=== PATIENT | female | born 1950 | race Hispanic/Latino ===

== ENCOUNTER 2019-02-15 14:20 | Emergency (ER) | payer SELFPAY ==
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
[2019-02-15] MEDS ORDERED: LISINOPRIL 20 MG TAB ONE (17:27)
== END 2019-02-15 17:31 | disposition home or self-care (01) ==
LOC: ER 14:20
DX: S39.012A Strain of muscle, fascia and tendon of lower back, initial encounter (principal); V43.02XA Car driver injured in collision with other type car in nontraffic accident, initial encounter; Y92.524 Gas station as the place of occurrence of the external cause; I10 Essential (primary) hypertension
CPT/HCPCS: 72100; 99284

== ENCOUNTER 2021-03-23 21:48 | Emergency (ER) | payer SELFPAY ==
--- OUTSIDE RECORDS SUMMARY | 2021-03-23 21:51 | XMS REPORT | Continuity of Care Document ---
:1950 Author Organization [facility] t Address [address] [place] [address] [place] [id number] Care Team Providers Name Role Phone Unavailable Unavailable Unavailable Payers Payer Name Policy Type Policy Number Effective Date Expiration Date S ource Problems This patient has no known problems. Allergies, Adverse Reactions, Alerts This patient has no known allergies or adverse reactions. Medications This patient has no known medications. Procedures This patient has no known procedures. Results This patient has no known results.
[2021-03-23 22:36] LABS: Absolute Lymphocytes (CBC) 1.4 K/uL (0.7-4.9); Basophils % 0.6 % (0-1.3); Hematocrit 32.7 % (36.0-45.0); Lymphocytes % 22.6 % (15.3-44.8); MPV 8.2 fL (7.6-11.3); RBC Red Blood Cell Count 3.87 M/uL (3.86-4.86)
[2021-03-23 22:47] LABS: Potassium 3.2 mmol/L (3.5-5.1)
[2021-03-23] MEDS ORDERED: KETOROLAC 30 MG/ML INJ ONE (23:16)
[2021-03-23] MEDS ORDERED: lisinopriL 20 MG TAB ONE (23:26)
[2021-03-23] MEDS ORDERED: HYDRALAZINE HCL 20 MG/ML VIAL ONE (23:36)
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
[2021-03-24 01:14] VITALS: TEMP 97.6
[2021-03-24 01:24] VITALS: BP 124/79; O2SAT 99
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
== END 2021-03-24 00:19 | disposition home or self-care (01) ==
LOC: ER 21:48
DX: S20.212A Contusion of left front wall of thorax, initial encounter (principal); I16.0 Hypertensive urgency; I10 Essential (primary) hypertension; V49.49XA Driver injured in collision with other motor vehicles in traffic accident, initial encounter
CPT/HCPCS: 36415; 70450; 71045; 71250; 72125; 80048; 85025; 86850; 86900; 86901; 96374; 96375; 99285; G0390; J0360

== ENCOUNTER 2022-05-18 19:30 | Emergency (ER) | payer OTHER ==
--- OUTSIDE RECORDS SUMMARY | 2022-05-18 19:34 | XMS REPORT | Continuity of Care Document ---
:1950 Author Organization [facility] t Address [address] [place] [address] Dr. Carrington [address] [place] [id number] Care Team Providers Name Role Phone Nikki Christopher Primary Care Physician [phone] Esa Lemos Attending Clinician Unavailable Esa Lemos Admitting Clinician Unavailable Payers Payer Name Policy Type Policy Number Effective Date Expiration Date S ource Problems This patient has no known problems. Allergies, Adverse Reactions, Alerts This patient has no known allergies or adverse reactions. Medications Ordered Filled Start Stop Current Ordering Indication Dosage Frequency Signature Comments Components Source Medication Medication Date Date Medication? Clinician (SIG) Name Name TAKE 1 2021-0 No 25 TABLET 8-11 TWICE 00:00: DAILY. 00 TAKE 1 2021-0 No 25 TABLET 8-08 TWICE 00:00: DAILY. 00 lisinopril 2-0 No 1mg 40 mg 6-03 tablet 00:00: 00 hydralazine 2-0 No 1mg 25 mg 6-03 tablet 00:00: 00 lisinopril 2022-0 No 1mg 40 mg 4-25 tablet 00:00: 00 hydralazine 2022-0 No 1mg 25 mg 4-25 tablet 00:00: 00 lisinopril 2-0 No 1mg 40 mg 4-04 tablet 00:00: 00 lisinopril 2-0 No 1mg 40 mg 4-04 tablet 00:00: 00 hydralazine 2022-0 No 1mg 25 mg 3-25 tablet 00:00: 00 Dose 2022-0 No Unknown 3-25 00:00: 00 Dose 2022-0 No Unknown 3-25 00:00: 00 Dose 2022-0 No Unknown 3-25 00:00: 00 Dose 2022-0 No Unknown 3-25 00:00: 00 Dose 2022-0 No Unknown 3-25 00:00: 00 Dose 2022-0 No Unknown 3-25 00:00: 00 Dose 2022-0 No Unknown 3-25 00:00: 00 Dose 2022-0 No Unknown 3-25 00:00: 00 Dose 2022-0 No Unknown 3-25 00:00: 00 Dose 2022-0 No Unknown 3-25 00:00: 00 Dose 2022-0 No Unknown 3-25 00:00: 00 Dose 2022-0 No Unknown 3-25 00:00: 00 Dose 2022-0 No Unknown 3-25 00:00: 00 Dose 2022-0 No Unknown 3-25 00:00: 00 Dose 2022-0 No Unknown 3-25 00:00: 00 Dose 2022-0 No Unknown 3-25 00:00: 00 Dose 2022-0 No Unknown 3-25 00:00: 00 Dose 2022-0 No Unknown 3-25 00:00: 00 Dose 2022-0 No Unknown 3-25 00:00: 00 Dose 2022-0 No Unknown 3-25 00:00: 00 Dose 2022-0 No Unknown 3-25 00:00: 00 Dose 2022-0 No Unknown 3-25 00:00: 00 Dose 2022-0 No Unknown 3-25 00:00: 00 Dose 2022-0 No Unknown 3-25 00:00: 00 Dose 2022-0 No Unknown 3-25 00:00: 00 Dose 2022-0 No Unknown 3-25 00:00: 00 Dose 2022-0 No Unknown 3-25 00:00: 00 Dose 2022-0 No Unknown 3-25 00:00: 00 Dose 2022-0 No Unknown 3-25 00:00: 00 Dose 2022-0 No Unknown 3-25 00:00: 00 Dose 2022-0 No Unknown 1-06 00:00: 00 Dose 1-1 No Unknown 2-27 00:00: 00 hydroxyzine 2021-1 No 1mg HCl 10 mg 1-17 tablet 00:00: 00 Cymbalta 20 1-1 No 1mg mg 1-17 capsule,del 00:00: ayed 00 release amlodipine 1-1 No 1mg 10 mg 1-12 tablet 00:00: 00 Zoloft 50 1-1 No 1mg mg tablet 1-10 00:00: 00 hydralazine 1-1 No 1mg 25 mg 0-28 tablet 00:00: 00 amlodipine 1-1 No 1mg 10 mg 0-26 tablet 00:00: 00 lisinopril 1-1 No 1mg 40 mg 0-04 tablet 00:00: 00 amlodipine 1-0 No 1mg 10 mg 9-29 tablet 00:00: 00 lisinopril 1-0 No 1mg 40 mg 9-07 tablet 00:00: 00 hydralazine 1-0 No 1mg 25 mg 9-05 tablet 00:00: 00 amlodipine 1-0 No 1mg 10 mg 8-27 tablet 00:00: 00 amlodipine 1-0 No 1mg 2.5 mg 8-13 tablet 00:00: 00 lisinopril 1-0 No 1mg 40 mg 8-06 tablet 00:00: 00 lisinopril 1-0 No 1mg 20 mg 7-08 tablet 00:00: 00 lisinopril 1-0 No 1mg 20 mg 4-19 tablet 00:00: 00 lisinopril 2019-1 No 1mg 20 mg 2-11 tablet 00:00: 00 lisinopril 2019-0 No 1mg 20 mg 9-17 tablet 00:00: 00 lisinopril 2020-0 No 1mg 20 mg 9-17 tablet 00:00: 00 lisinopril 2020-0 No 1mg 20 mg 3-24 tablet 00:00: 00 Vital Signs Vital Name Observation Time Observation Value Comments Source BP Systolic 2021-10-06 17:26:00 142 mm[Hg] BP Diastolic 2021-10-06 17:26:00 89 mm[Hg] Weight Measured 2021-10-06 17:26:00 Height Measured 2021-10-06 17:26:00 Body Temperature 2021-10-06 17:26:00 Heart Rate 2021-10-06 17:26:00 Respiratory Rate 2021-10-06 17:26:00 BP Systolic 2021-09-08 15:14:00 140 mm[Hg] BP Diastolic 2021-09-08 15:14:00 79 mm[Hg] Weight Measured 2021-09-08 15:14:00 107.60 pounds Height Measured 2021-09-08 15:14:00 62.20 inches Body Temperature 2021-09-08 15:14:00 97.70 degrees Heart Rate 2021-09-08 15:14:00 86.00 /min Respiratory Rate 2021-09-08 15:14:00 Height Measured 2021-08-19 15:33:00 62.20 inches Body Temperature 2021-08-19 15:33:00 97.70 degrees Heart Rate 2021-08-19 15:33:00 79.00 /min Respiratory Rate 2021-08-19 15:33:00 BP Systolic 2021-08-19 15:33:00 122 mm[Hg] BP Diastolic 2021-08-19 15:33:00 84 mm[Hg] Weight Measured 2021-08-19 15:33:00 107.60 pounds BP Systolic 2021-08-12 11:13:00 122 mm[Hg] BP Diastolic 2021-08-12 11:13:00 74 mm[Hg] Weight Measured 2021-08-12 11:13:00 107.40 pounds Height Measured 2021-08-12 11:13:00 62.20 inches Body Temperature 2021-08-12 11:13:00 96.80 degrees Heart Rate 2021-08-12 11:13:00 76.00 /min Respiratory Rate 2021-08-12 11:13:00 BP Systolic 2021-06-16 17:35:00 117 mm[Hg] BP Diastolic 2021-06-16 17:35:00 81 mm[Hg] Weight Measured 2021-06-16 17:35:00 114.40 pounds Height Measured 2021-06-16 17:35:00 62.20 inches Body Temperature 2021-06-16 17:35:00 97.20 degrees Heart Rate 2021-06-16 17:35:00 80.00 /min Respiratory Rate 2021-06-16 17:35:00 16.00 /min Weight Measured 2021-03-24 15:54:00 121.60 pounds Height Measured 2021-03-24 15:54:00 62.20 inches Body Temperature 2021-03-24 15:54:00 98.20 degrees Heart Rate 2021-03-24 15:54:00 84.00 /min Respiratory Rate 2021-03-24 15:54:00 16.00 /min BP Systolic 2021-03-24 15:54:00 201 mm[Hg] BP Diastolic 2021-03-24 15:54:00 97 mm[Hg] Procedures This patient has no known procedures. Plan of Care Planned Activity Planned Date Details Comments Source Goal Plan of Care Note [code = 18616-7] Goal Plan of Care Note [code = 81831-5] Goal Plan of Care Note [code = 14505-0] Goal Plan of Care Note [code = 02092-0] Goal Plan of Care Note [code = 63995-9] Goal Plan of Care Note [code = 95289-0] Encounters Start End Encounter Admission Attending Care Care Encounter Source Date/Time Date/Time Type Type Clinicians Facility Department ID 2022-05-04 2022-05-04 Outpatient [id number] 00:00:00 00:00:00 Visit [id number] 2021-12-08 2021-12-08 Outpatient ALVERTO Lemos [facility] [id number] [facility] 12:00:00 12:00:00 , [id number] [facility] Results This patient has no known results.
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
[2022-05-18 21:13] LABS: Hematocrit 36.5 % (36.0-45.0); Lymphocytes % 13.6 % (15.3-44.8); MCV 84.6 fL (80-100); MPV 8.2 fL (7.6-11.3); RBC Red Blood Cell Count 4.31 M/uL (3.86-4.86)
[2022-05-18 21:55] LABS: Potassium 3.8 mmol/L (3.5-5.1); Troponin High Sensitivity 6.7 pg/mL (<58.9)
--- NOTE | 2022-05-18 22:11 | EDPHYS ---
Physician Documentation [facility] Name: Anny Neri Age: 71 yrs Sex: Female : 1950 Arrival Date: 05/18/2022 Time: 19:32 Bed 25 Private MD: ED Physician Federico Varghese HPI: 05/18 20:12 This 71 yrs old Female presents to ER via Ambulatory with complaints of Fall jmm Injury, Head Injury-Adult. 20:12 Details of fall: The patient fell from an upright position. Onset: The symptoms/episode jmm began/occurred acutely, today. Associated injuries: The patient sustained injury to the head. This is a 71-year-old female with a history of hypertension that presents to the emergency department with complaints of dizziness and a fall which occurred while she was at work. Patient states that her physician recently increase the frequency of her hydralazine. States she took an additional dose of hydralazine just prior to work. Patient states while at work she was having difficulty walking and fell, hitting her head. Denies loss of consciousness. Patient was evaluated urgent care. Denies chest pain or palpitations. Historical: - Allergies: 19:42 No Known Allergies; tw5 - Home Meds: 19:42 lisinopril Oral [Active]; hydralazine 25 mg Oral tab 1 tab 4 times per day [Active]; tw5 - PMHx: 19:42 Hypertension; tw5 - Immunization history:: Last tetanus immunization: unknown. - Social history:: Smoking status: Patient denies any tobacco usage or history of. - Immunization history: Last tetanus immunization: unknown. ROS: 20:12 Constitutional: Negative for fever, chills, and weight loss, Cardiovascular: Negative jmm for chest pain, palpitations, and edema, Respiratory: Negative for shortness of breath, cough, wheezing, and pleuritic chest pain. 20:12 Neuro: Positive for dizziness, headache. 20:12 All other systems are negative. Exam: 20:12 Constitutional: This is a well developed, well nourished patient who is awake, alert, jmm and in no acute distress. Head/Face: atraumatic. Eyes: EOMI, no conjunctival erythema appreciated ENT: Moist Mucus Membranes Neck: Trachea midline, Supple Chest/axilla: Normal chest wall appearance and motion. Cardiovascular: Regular rate and rhythm. No edema appreciated Respiratory: Normal respirations, no respiratory distress appreciated Abdomen/GI: Non distended 20:12 Back: pain, that is mild, of the right low back, vertebral tenderness, is not appreciated. 20:12 Musculoskeletal/extremity: ROM: intact in all extremities. 20:12 Skin: Appearance: Color: normal in color. 20:12 Neuro: Motor: is normal. 20:12 Psych: Behavior/mood is pleasant, cooperative. Vital Signs: 19:39 BP 177 / 99; Pulse 75; Resp 18; Temp 98.1; Pulse Ox 100% ; Weight 49.9 kg; Height 5 ft. tw5 3 in. (160.02 cm); Pain 4/10; 19:39 Body Mass Index 19.49 (49.90 kg, 160.02 cm) tw5 [place] Coma Score: 20:59 Eye Response: spontaneous(4). Verbal Response: oriented(5). Motor Response: obeys as6 commands(6). Total: 15. Trauma Score (Adult): 20:59 Eye Response: spontaneous(1); Verbal Response: oriented(1); Motor Response: obeys as6 commands(2); Systolic BP: > 89 mm Hg(4); Respiratory Rate: 10 to 29 per min(4); Fili Score: 15; Trauma Score: 12 MDM: 20:17 Patient medically screened. [facility] 22:08 Data reviewed: vital signs, nurses notes. Counseling: I had a detailed discussion with [facility] the patient and/or guardian regarding: the historical points, exam findings, and any diagnostic results supporting the discharge/admit diagnosis, lab results, radiology results, the need for outpatient follow up, to return to the emergency department if symptoms worsen or persist or if there are any questions or concerns that arise at home. ED course: Labs and imaging studies were unremarkable. I do not currently suspect CVA, VBI. CT noncontrast study was negative. Patient has a normal gait, cerebellar exam was normal. Dizziness was most likely a presyncopal episode which occurred due to increased frequency of hydralazine. Patient is currently alert and nontoxic in appearance. Denies any type of dizziness or palpitations.. 05/18 20:12 Order name: Basic Metabolic Panel; Complete Time: 21:59 [facility] 05/18 20:12 Order name: CBC with Diff; Complete Time: 21:46 [facility] 05/18 20:12 Order name: Troponin HS; Complete Time: 21:59 [facility] 05/18 20:12 Order name: EKG; Complete Time: 20:13 [facility] 05/18 20:12 Order name: Cardiac monitoring [facility] 05/18 20:13 Order name: CT Head Brain wo Cont; Complete Time: 21:13 [facility] 05/18 20:12 Order name: EKG - Nurse/Tech; Complete Time: 20:57 [facility] 05/18 20:12 Order name: IV Saline Lock; Complete Time: 20:57 [facility] 05/18 20:12 Order name: Labs collected and sent; Complete Time: 20:57 [facility] 05/18 20:12 Order name: O2 Per Protocol [facility] 05/18 20:12 Order name: O2 Sat Monitoring [facility] Administered Medications: No medications were administered Disposition Summary: 05/18/22 22:10 Discharge Ordered Location: Home [facility] Condition: Stable [facility] Diagnosis - Unspecified injury of head, initial encounter [facility] Followup: [facility] - With: Private Physician - When: Tomorrow - Reason: Recheck today's complaints, Continuance of care, Re-evaluation by your physician Discharge Instructions: - Discharge Summary Sheet [facility] - Head Injury, Adult [facility] Forms: - Medication Reconciliation Form [facility] - Thank You Letter [facility] - Antibiotic Education [facility] - Work release form melo - Prescription Opioid Use [facility] Signatures: Dispatcher [employer] Sumanth Goldberg PA PA jmm Wood, Tiffany tw5 Estrada Bowen, RN RN as6
--- NOTE | 2022-05-18 22:11 | ER ---
Nurse's Notes [facility] Name: Anny Neri Age: 71 yrs Sex: Female : 1950 Arrival Date: 05/18/2022 Time: 19:32 Bed 25 Private MD: Diagnosis: Unspecified injury of head, initial encounter Presentation: 05/18 19:39 Chief complaint: Patient states: "I was working at [employer] and I started to feel tw5 dizzy. I was hold on to the basket and I fell and hit my head on the cement." Patient denies LOC. Coronavirus screen: Vaccine status: Patient reports receiving the 2nd dose of the covid vaccine. [employer]. Ebola Screen: Patient negative for fever greater than or equal to 101.5 degrees Fahrenheit, and additional compatible Ebola Virus Disease symptoms Patient denies exposure to infectious person. No symptoms or risks identified at this time. Initial Sepsis Screen: Does the patient meet any 2 criteria? No. Patient's initial sepsis screen is negative. Does the patient have a suspected source of infection? No. Patient's initial sepsis screen is negative. Risk Assessment: Do you want to hurt yourself or someone else? Patient reports no desire to harm self or others. Onset of symptoms was May 18, 2022 at 16:30. 19:39 Method Of Arrival: Ambulatory tw5 19:39 Acuity: JEIMY 4 tw5 20:58 Care prior to arrival: None. Mechanism of Injury: Fall. Trauma event details: Injury as6 occurred in the [facility]. Triage Assessment: 19:42 General: Appears in no apparent distress. Behavior is calm, cooperative, appropriate tw5 for age. Pain: Pain currently is 4 out of 10 on a pain scale. Trauma Activation: Not Applicable Physician: ED Physician; Name: ; Notified At: ; Arrived At: Physician: General Surgeon; Name: ; Notified At: ; Arrived At: Physician: Radiology; Name: ; Notified At: ; Arrived At: Physician: Respiratory; Name: ; Notified At: ; Arrived At: Physician: Lab; Name: ; Notified At: ; Arrived At: Historical: - Allergies: 19:42 No Known Allergies; tw5 - Home Meds: 19:42 lisinopril Oral [Active]; hydralazine 25 mg Oral tab 1 tab 4 times per day [Active]; tw5 - PMHx: 19:42 Hypertension; tw5 - Immunization history:: Last tetanus immunization: unknown. - Social history:: Smoking status: Patient denies any tobacco usage or history of. - Immunization history: Last tetanus immunization: unknown. Screenin:59 Abuse screen: Denies threats or abuse. Denies injuries from another. Nutritional as6 screening: No deficits noted. Tuberculosis screening: No symptoms or risk factors identified. Fall Risk Fall in past 12 months (25 points). Total [place] Fall Scale indicates Low Risk Score (25-44 pts). Fall prevention measures have been instituted. Side Rails Up X 2. Primary Survey: 20:58 NO uncontrolled hemorrhage observed. A: The client is awake and alert. The airway is as6 patent. Breathing/Chest: Spontaneous respiratory effort, equal unlabored respirations, breath sounds clear bilaterally, regular pattern, symmetrical chest rise and fall. Circulation: No external hemorrhage present. Regular and strong central pulse, skin warm/dry/normal color. Disability Pupils are equal, round, reactive to light and accommodation. Client is alert. Exposure/Environment: A warming method has been applied: A warm blanket has been provided to the patient. 22:22 Reassessment Breathing: Spontaneous respiratory effort, equal unlabored respirations, tw5 breath sounds clear bilaterally, regular pattern with symmetrical chest rise and fall. Assessment: 20:58 General: Appears in no apparent distress. Behavior is calm, cooperative. Pain: as6 Complains of pain in head. Neuro: Level of Consciousness is awake, alert, Reports dizziness, headache. Respiratory: Respiratory effort is even, unlabored. Vital Signs: 19:39 BP 177 / 99; Pulse 75; Resp 18; Temp 98.1; Pulse Ox 100% ; Weight 49.9 kg; Height 5 ft. tw5 3 in. (160.02 cm); Pain 4/10; 19:39 Body Mass Index 19.49 (49.90 kg, 160.02 cm) tw5 Fili Coma Score: 20:59 Eye Response: spontaneous(4). Verbal Response: oriented(5). Motor Response: obeys as6 commands(6). Total: 15. Trauma Score (Adult): 20:59 Eye Response: spontaneous(1); Verbal Response: oriented(1); Motor Response: obeys as6 commands(2); Systolic BP: > 89 mm Hg(4); Respiratory Rate: 10 to 29 per min(4); Fili Score: 15; Trauma Score: 12 ED Course: 19:32 Patient arrived in ED. jj6 19:42 Sumanth Ledezma PA is PHCP. jmm 19:42 Federico Varghese MD is Attending Physician. jmm 19:42 Triage completed. tw5 19:42 Arm band placed on. tw5 20:23 Estrada Bowen, JUNO is Primary Nurse. as6 20:57 Inserted saline lock: 20 gauge in right antecubital area, using aseptic technique. as6 Blood collected. 20:59 Bed in low position. Call light in reach. Side rails up X2. as6 20:59 Patient maintains SpO2 saturation greater than 95% on room air. as6 20:59 Thermoregulation: warm blanket given to patient. as6 21:02 CT Head Brain wo Cont In Process Unspecified. EDMS 22:22 No provider procedures requiring assistance completed. IV discontinued, intact, tw5 bleeding controlled, No redness/swelling at site. Pressure dressing applied. Administered Medications: No medications were administered Intake: 20:59 PO: 0ml; Total: 0ml. as6 Outcome: 22:10 Discharge ordered by . m 22:22 Patient left the ED. tw5 Signatures: Dispatcher [employer] EDMS Sumanth Ledezma PA PA jmm Wood, Tiffany tw5 Mayela Ernandez jj6 Estrada Bowen, RN RN as6
[2022-05-19 01:05] VITALS: BP 177/99; TEMP 98.1; O2SAT 100
--- NOTE | 2022-05-19 07:19 | EKG ---
Test Date: 2022-05-18 Test Time: 20:46:51 [facility] [employer]: MEASUREMENT RESULTS: Intervals: Rate: 67 WV: 174 QRSD: 84 QT: 444 QTc: 469 [place]: P: 57 WV: 174 QRS: -14 T: 95 INTERPRETIVE STATEMENTS: Normal sinus rhythm Left ventricular hypertrophy with repolarization abnormality Abnormal ECG No previous ECG available for comparison Electronically Signed On 05-19-22 07:18:23 CDT by Calderon Cifuentes
== END 2022-05-18 22:22 | disposition home or self-care (01) ==
LOC: ER 19:30
DX: S09.90XA Unspecified injury of head, initial encounter (principal); R42 Dizziness and giddiness; R51.9 Headache, unspecified; I10 Essential (primary) hypertension
CPT/HCPCS: 36415; 70450; 80048; 84484; 85025; 93005; 99284